=== PATIENT | male | born 1980 | race African-American/Black ===

== ENCOUNTER 2017-05-03 14:00 | Emergency (ER) | payer OTHER ==
[~2017-05-03] VITALS: Ht 165.1 cm; Wt 85.9 kg
[~2017-05-03 14:00] MED LIST: ADVAIR 250/501 DISK IH; CLEOCIN300 MG PO; CYMBALTA60 MG PO; DEPAKOTE500 MG PO; DILAUDID2 MG PO; DIVALPROEX SOD500 M1 PO; FUROSEMIDE20 MG PO; HYDROCHLOROTHIA25 MG PO; INDERAL LA160 MG PO; INDERAL10 MG PO; KLOR-CON 88 MEQ PO; LOTENSIN20 MG PO; LOTENSIN40 MG PO; LYRICA150 MG PO; METHOCARBAMOL750 MG PO; NEXIUM40 MG PO; NORVASC5 MG PO; OMEPRAZOLE40 M1 PO; OXYCODONE HCL5 MG PO; PERCOCET 10/1 TABLET PO; PERCOCET 5/31 TABLET PO; PLAQUENIL200 MG PO; PRED FORTE100 DROP/5 BOTH EYES; PREDNISONE10 MG PO; PREDNISONE20 MG PO; PROAIR HFA8.5 GM IH; PROVENTIL,2.5 MG/3 M IH; TRAMADOL HCL50 MG PO; WELLBUTRIN100 MG PO; WELLBUTRIN75 MG PO; cymbalta; prednisolone
[2017-05-03] MEDS ORDERED: DELTASONE20 M1 PO (15:58)
[2017-05-03] MEDS ORDERED: PREDNISONE10 MG PO (15:59)
[2017-05-03] MEDS ORDERED: CLONIDINE HCL0.1 MG PO (16:00)
[2017-05-03] MEDS ORDERED: BENAZEPRIL HCL40 MG PO (16:01)
[2017-05-03] MEDS ORDERED: METHIMAZOLE5 MG PO (16:02)
[2017-05-03] MEDS ORDERED: GLIPIZIDE5 MG PO (16:02)
[2017-05-03] MEDS ORDERED: NAPROXEN500 MG PO (16:46)
[2017-05-03 17:37] VITALS: BP 164/102
== END 2017-05-03 17:40 | disposition home or self-care (01) ==
LOC: EME 14:00
DX: S93.401A Sprain of unspecified ligament of right ankle, initial encounter (principal); X50.1XXA Overexertion from prolonged static or awkward postures, initial encounter; Y93.01 Activity, walking, marching and hiking; I10 Essential (primary) hypertension; Z79.52 Long term (current) use of systemic steroids; Z79.84 Long term (current) use of oral hypoglycemic drugs; F17.200 Nicotine dependence, unspecified, uncomplicated
CPT/HCPCS: 73610; 99281; 99284